=== PATIENT | female | born 1980 | race Caucasian/White ===

== ENCOUNTER 2025-02-16 06:26 | Day surgery (SDC) | payer OTHER, SELFPAY ==
[2025-02-16] VITALS (17 sets, daily range): BP systolic 83–157; BP diastolic 43–104; PULSE 59–90; RESP 14–20; TEMP 36.2–36.9; O2SAT 94–99; BMI 26.8
--- NOTE | 2025-02-16 06:54 | CRLHL7_ITS ---
For Patients: As a result of the Century Cures Act, medical imaging exams and procedure reports are released immediately into your electronic medical record. You may view this report before your referring provider. If you have questions, please contact your health care provider. INDICATION: Right lower quadrant pain. TECHNIQUE: CT abdomen and pelvis acquired with 81 cc Omnipaque 370 IV contrast. COMPARISON: None. FINDINGS: Lower chest: Unremarkable. Liver: Normal in size and attenuation. No suspicious masses. Gallbladder and bile ducts: No stones or inflammation. No biliary dilatation. Pancreas: No mass or inflammation. Spleen: Normal in size. No masses. Adrenal glands: No suspicious mass. Kidneys: Bilateral kidneys are normal in size with symmetric enhancement. No nephrolithiasis or hydronephrosis. GI tract: No findings of bowel obstruction. Inflamed and dilated appendix measuring up to 10 millimeter with appendicular lith of 6 millimeter at the base. No adjacent free fluid or free air to suspect perforation. Vasculature: Abdominal aorta is normal in caliber. Lymph nodes: No lymphadenopathy. Peritoneum/Abdominal Wall: No free air or significant free fluid. Hernia. Small fat containing umbilical Pelvis: Uterus is normal in size and attenuation. Bones: Unremarkable for age. IMPRESSION: Acute appendicitis with appendicolith of 6 mm at the base. Please note that all CT scans at this facility use dose modulation, iterative reconstruction, and/or weight-based dosing when appropriate to reduce radiation dose to as low as reasonably achievable. Dictated by Sury Martinez MD @ 02/16/2025 7:46:26 AM (Electronically Signed)
--- NOTE | 2025-02-16 07:01 | ED_ITS ---
HPI - General Adult General Chief complaint: Abdominal Pain Stated complaint: Lower R abdominal pain Time Seen by Provider: 02/16/25 06:45 History of Present Illness HPI narrative: 44-year-old female presents the emergency department with abdominal pain on the right side that has been present over the past 8 hours, worsening, now constant and sharp and located more in the right lower quadrant. She initially had wondered if her abdominal pain was secondary to eating garlic which she is very sensitive to but she researched her foods and realized that that was not the case. She tried taking Tums and Gas-X with no improvement in symptoms. She feels very bloated, abdomen seems distended. No vomiting, no nausea. Did not try any Tylenol or ibuprofen to help with symptoms. Pain is worsening over the last few hours. Waited until the morning to come into the ED. does have a hist ory of abdominal surgeries, 1 14 years ago, also had an abdominal plasty last year. Denies gynecological changes, no history of kidney stones, no dysuria. She takes season now for control, denies chance of . No injury or trauma. No other family members currently ill. Healthy normal bowel movement yesterday, NPO since supper yesterday. Past medical history notable for hypertension. Reports use of lisinopril and hydrochlorothiazide. Sensitivity to garlic but no anaphylactic allergies. Nonsmoker. Surgical history in the abdomen notable for and abdominal plasty as stated above. No anticoagulants. ROS is notable for the abdominal symptoms only, otherwise denies times 12 systems. Related Data Home Medications ?Medication ?Instructions ?Recorded ?Confirmed cyclobenzaprine 10 mg tablet 10 mg PO HS 02/16/25 02/16/25 dextroamphetamine-amphetamine 5 mg 1 tab PO QPM PRN 02/16/25 02/16/25 tablet dextroamphetamine-amphetamine ER 1 cap PO QAM 02/16/25 02/16/25 20 mg 24hr capsule,extend release hydrochlorothiazide 25 mg tablet 25 mg PO DAILY 02/16/25 02/16/25 levonorgestrel 0.15 mg-ethinyl 1 tab PO DAILY 02/16/25 02/16/25 estradiol 30 mcg tablets,3 mos pack(91) (Johnny) lisinopril 20 mg tablet 20 mg PO DAILY 02/16/25 02/16/25 Previous Rx's ?Medication ?Instructions ?Recorded hydrocodone 5 mg-acetaminophen 325 1 tab PO Q6H PRN pain #15 tabs 02/16/25 mg tablet sennosides 8.6 mg capsule (senna) 8.6 mg PO DAILY PRN constipation 02/16/25 #90 caps Allergies Allergy/AdvReac Type Severity Reaction Status Date / Time garlic AdvReac abdomen Verified 02/16/25 09:25 pain PFSH PFSH Social History Smoking Status: Never smoker How often do you have a drink containing alcohol: 2-4 times a month Alcohol type: other Alcohol type details: seltzers How many standard drinks containing alcohol do you have on a typical day: 5 or 6 How often do you have six or more drinks on one occasion: Less than monthly AUDIT-C Alcohol total score: 5 Non-prescribed substance use: denies use Caffeine: Yes (1 pop/day) service: No Exam Const: Vital Signs, click to edit/add: Vital Signs - 24 hr 02/16/25 06:38 02/16/25 09:00 02/16/25 09:40 Temperature 98.1 F 98.4 F Pulse Rate 90 Pulse Rate [Pulse Oximeter] 90 80 Respiratory Rate 16 16 16 Blood Pressure 135/104 H Blood Pressure [Ri ght Upper Arm] 157/96 H 126/90 H Pulse Oximetry 98 98 99 Oxygen Delivery Me thod Room Air Room Air Room Air 02/16/25 12:36 02/16/25 12:40 02/16/25 12:45 Temperature Pulse Rate 87 82 83 Pulse Rate [Pulse Oximeter] Respiratory Rate 16 19 15 Blood Pressure 104/62 96/57 L 93/56 L Blood Pressure [Ri ght Upper Arm] Pulse Oximetry 98 95 98 Oxygen Delivery Me thod Room Air 02/16/25 12:50 02/16/25 12:55 02/16/25 13:00 Temperature Pulse Rate 63 59 L 60 Pulse Rate [Pulse Oximeter] Respiratory Rate 15 20 20 Blood Pressure 85/49 L 83/43 L 95/60 Blood Pressure [Ri ght Upper Arm] Pulse Oximetry 96 97 97 Oxygen Delivery Me thod 02/16/25 13:05 02/16/25 13:10 02/16/25 13:15 Temperature 97.4 F L Pulse Rate 60 59 L 62 Pulse Rate [Pulse Oximeter] Respiratory Rate 16 16 15 Blood Pressure 98/61 98/62 104/64 Blood Pressure [Ri ght Upper Arm] Pulse Oximetry 95 94 99 Oxygen Delivery Me thod Room Air 02/16/25 13:20 02/16/25 13:30 02/16/25 13:45 Temperature 97.2 F L Pulse Rate 62 77 72 Pulse Rate [Pulse Oximeter] Respiratory Rate 15 16 16 Blood Pressure 97/71 107/69 111/47 L Blood Pressure [Ri ght Upper Arm] Pulse Oximetry 99 99 98 Oxygen Delivery Me thod Room Air Room Air Room Air 02/16/25 14:00 02/16/25 14:15 Temperature 97.8 F Pulse Rate 63 66 Pulse Rate [Pulse Oximeter] Respiratory Rate 16 14 Blood Pressure 111/76 113/93 H Blood Pressure [Ri ght Upper Arm] Pulse Oximetry 98 99 Oxygen Delivery Me thod Room Air Room Air Documenting provider has reviewed patient's vital signs: yes Common normals: no apparent distress and alert General appearance: cooperative and well kempt Other: Seems uncomfortable, very cooperative and friendly. Appears well nourished, well hydrated, nontoxic. HENMT: Common normals: normocephalic, moist oral mucous membranes and oropharynx normal Head and scalp: normocephalic Face and sinus: normal facial exam Mouth: oral and palatal mucosa normal Throat: posterior oropharynx normal Eye: Common normals: conjunctivae normal General eye: normal appearance of both eyes Conjunctiva: conjunctiva(e) normal Neck & C-Spine: General: normal visual inspection Resp: Common normals: normal respiratory effort and clear to auscultation bilaterally Effort & inspection: able to speak in complete sentences Auscultation: clear to auscultation bilaterally Cardio: Common normals: regular rate, regular rhythm, S1 normal heart sound, S2 normal heart sound and no murmurs Rate: regular rate Rhythm: regular rhythm Heart sounds: S1 normal and S2 normal GI: Other: Abdomen appears distended. Bowel sounds are hyperactive throughout. Guarding right lower quadrant with rebound tenderness present. No obvious mass. Liver and spleen are not enlarged. : Common normals: no CVA tenderness Bladder/kidney exam: no CVA tenderness Back & Pelvis: Common normals: no CVA tenderness Extremity: Common normals: normal to inspection, normal capillary refill and no pedal edema Neuro: Common normals: moves all extremities and no focal motor deficits Sensorium/orientation: alert Speech: speech normal Psych: Appearance: well kempt Attitude: engaged Insight: insight good Judgement: judgment good Skin: Common normals: no rashes or lesions noted General skin exam: no rashes or lesions noted Course Course ED Course: 44-year-old female with signs of peritonitis and right lower quadrant abdominal pain. Differential diagnosis including obstruction, ovarian torsion, ectopic , most likely appendicitis, very suspicious for rupture. Differential diagnosis also including things like gastroenteritis, volvulus, inflammatory bowel disease, kidney stone, amongst others. Urinalysis collected will run test. Emergency CT of the abdomen and pelvis suspicious for ruptured appendicitis. Toradol and Zofran for pain and nausea, typical intra-abdominal labs. Saline lock in place. Await findings. No initial signs of sepsis. Reevaluation(s) Time of Reevaluation #1: 08:01 Reevaluation #1: Spoke with Dr. Schmitt. CT showing acute appendicitis. Exam is suggestive of perforation but CT was not. I do recommend starting antibiotics, Zosyn. Surgery will evaluate patient and is planning for appendectomy later today. Confirm patient's last food was 7:00 p.m. last night. No anticoagulant use. No previous issues with general anesthesia. Not taking any beta blockers or cardiac medications. She is medically cleared for anesthesia with no additional perioperative studies are treatments recommended besides routine care. Vital Signs Vital signs: Initial Vital Signs Temperature 98.1 F 02/16/25 06:38 Temperature Source Temporal Artery Scan 02/16/25 06:38 Pulse Rate 90 02/16/25 06:38 Respiratory Rate 16 02/16/25 06:38 Blood Pressure 157/96 H 02/16/25 06:38 Blood Pressure Mean 116 H 02/16/25 06:38 Blood Pressure Position Sitting 02/16/25 06:38 Pulse Oximetry 98 02/16/25 06:38 Oxygen Delivery Method Room Air 02/16/25 06:38 Vital Signs Temperature 98.1 F 02/16/25 06:38 Pulse Rate 90 02/16/25 06:38 Respiratory Rate 16 02/16/25 06:38 Blood Pressure 157/96 H 02/16/25 06:38 Pulse Oximetry 98 02/16/25 06:38 Oxygen Delivery Method Room Air 02/16/25 06:38 Temperature 97.8 F 02/16/25 14:00 Pulse Rate 66 02/16/25 14:15 Respiratory Rate 14 02/16/25 14:15 Blood Pressure 113/93 H 02/16/25 14:15 Pulse Oximetry 99 02/16/25 14:15 Oxygen Delivery Method Room Air 02/16/25 14:15 Medications Administered Medications: Discontinued Medications Generic Name Dose Route Start Last Admin Trade Name Freq PRN Reason Stop Dose Admin Hydrocodone Bitart/Acetaminophen 1 - 2 tab 02/16/25 12:25 02/16/25 14:25 Hydrocodone-Acetamin 5-325 Mg 1 Tab PO 1 tab Q4H PRN Administration Pain Bupivacaine HCl 30 ml 02/16/25 12:19 02/16/25 12:19 Bupivacaine 0.25% 30 Ml INJECTION 02/16/25 12:20 20 ml ONCE ONE Administration Piperacillin Sod/Tazobactam 100 mls @ 200 mls/hr 02/16/25 07:51 02/16/25 08:40 Sod 3.375 gm/ Sodium Chloride IVPB 02/16/25 07:52 Infused ONCE ONE Infusion Lactated Ringer's 1,000 mls @ 500 mls/hr 02/16/25 07:51 02/16/25 08:47 Lactated Ringers 1000 Ml IV 02/16/25 09:50 500 mls/hr .Q2H SUSANA Administration Lactated Ringer's 1,000 mls @ 100 mls/hr 02/16/25 10:00 02/16/25 14:19 Lactated Ringers 1000 Ml IV Infused .Q10H SUSAAN Infusion Ketorolac Tromethamine 15 mg 02/16/25 06:54 02/16/25 07:23 Ketorolac 15 Mg/Ml Inj IVP 02/16/25 06:55 15 mg ONCE ONE Administration Ondansetron HCl 4 mg 02/16/25 06:54 02/16/25 07:23 Ondansetron 2 Mg/Ml Inj IVP 02/16/25 06:55 4 mg ONCE ONE Administration Medical Decision Making Lab Data Labs: Lab Results 02/16/25 02/16/25 Range/Units 06:40 07:07 WBC 12.90 H (4.50-11.00) K/uL RBC 4.33 (4.00-5.20) m/uL Hgb 13.6 (12.0-16.0) gm/dL Hct 40.3 (33.0-51.0) % MCV 93 (80-100) fL MCH 31 (26-34) pg MCHC 34 (32-36) gm/dL RDW Coeff of Mally 11.9 (11.5-15.5) % Plt Count 297 (140-440) K/uL Neut % (Auto) 78.2 H (42.0-72.0) % Lymph % (Auto) 12.6 L (20-44) % [place] % (Auto) 6.2 (0.0-11.0) % Eos % (Auto) 2.4 (0.0-7.0) % Baso % (Auto) 0.4 (0.0-3.0) % Neut # (Auto) 10.10 H (1.7-7.0) K/uL Lymph # (Auto) 1.60 (0.90-2.90) K/uL [place] # (Auto) 0.80 (0.00-0.90) K/UL Eos # (Auto) 0.30 (0.00-0.50) K/uL Baso # (Auto) 0.10 (0.00-0.30) K/uL Abs Immat Gran (auto) 0.00 (0.00-0.30) K/uL Imm/Tot Granulo (auto) 0.2 % Sodium 134 L (135-149) mmol/L Potassium 4.0 (3.6-5.1) mmol/L Chloride 102 (96-114) mmol/L Carbon Dioxide 23 (20-32) mmol/L Anion Gap 9 (7-15) mEq/L BUN 14 (5-24) mg/dL Creatinine 0.6 (0.5-1.5) mg/dL Estimated Creat Clear 112.01 Estimated GFR 113 ml/min Glucose 113 (60-115) mg/dL Lactate 1.0 (0.5-1.9) mmol/L Calcium 9.7 (8.4-10.6) mg/dL Total Bilirubin 0.7 (0.1-1.5) mg/dL AST 33 (12-35) U/L ALT 22 (4-35) U/L Alkaline Phosphatase 51 (40-150) U/L C-Reactive Protein 2.0 H (0.5-1.0) mg/dL Total Protein 7.1 (6.0-8.3) g/dL Albumin 4.2 (3.3-5.0) g/dL Lipase 222 (23-300) U/L Urine Color Yellow (Yellow) Urine Appearance Clear (Clear) Urine pH 6.5 (5.0-8.5) Ur Specific Martelle 1.015 (1.000-1.030) Urine Protein Negative (Negative) Urine Glucose (UA) Negative (Negative) Urine Ketones 1+ A (Negative) Urine Blood Trace-intact A (Negative) Urine Nitrite Negative (Negative) Urine Bilirubin Negative (Negative) Urine Urobilinogen 0.2 (0.2-1.0) Ur Leukocyte Esterase Negative (Negative) Urine RBC 0-2 (0-2) Urine WBC 0-2 (0-5) Ur Squamous Epith Cells Moderate A (None-Few) Urine Bacteria Few A (None) Urine Mucus Few A (None) Urine HCG, Qual Negative (Negative) Discharge Plan Discharge Clinical Impression: Acute appendicitis Patient Disposition: XFER to OR
[2025-02-16 07:04] LABS: Appearance Urine Clear (Clear); Bilirubin Urine Negative (Negative); Blood Urine Trace-intact (Negative); Color Urine Yellow (Yellow); Glucose Urine Negative (Negative); Ketones Urine 1+ (Negative); Leukocyte Esterase Urine Negative (Negative); Nitrite Urine Negative (Negative); Protein Urine Negative (Negative); Specific Gravity Urine 1.015 (1.000-1.030); Urobilinogen Urine 0.2 (0.2-1.0); pH Urine 6.5 (5.0-8.5)
[2025-02-16 07:06] LABS: Ur HCG Qualitative* Negative (Negative)
--- OUTSIDE RECORDS SUMMARY | 2025-02-16 07:14 | XMS_ITS | Encounter Summary ---
Author Organization [facility] Address [address] [place] [address] Care Team Providers Care Marine Pipefitter Name Role Phone Maxx Pabon MD Unavailable Israel Temple PA-C Primary Care Provider [phone] Israel Temple PA-C Unavailable [phone] Encounter Details Date Type Department Care Team (Late st Contact Info) Description 06/24/2024 [facility] [place] [facility] [place] [address] [address] Jean Marie He, DEBBIE Social History Tobacco Use Types Packs/Day Years Used Date Smoking Tobacco: Never Passive Smoke Exposure: Never Smokeless Tobacco: Never Alcohol Use Standard Drinks/Week Comments Yes 0 (1 standard drink = 0.6 oz pur e alcohol) ocassionally Social Connection and Isolation Panel [NHANES] A nswer Date Recorded Frequency of Communication with Friends and Fami ly Not on file 06/21/2024 How often do you get togethe r with friends or relatives? Three times a week 06/21/2024 Attends Denominational Services Not on file 06/21 Active Member of Clubs or Organizations Not on f ile 06/21/2024 Attends Club or Organization Meetings Not on cesar e 06/21/2024 Marital Status Not on file 06/21/2024 PHQ-2 Answer Date Recorded PHQ-2 Score 0 03/16/2024 [facility] Occupat ional [facility] - Occupational Stress Questionnaire Answer Date Recorded Do you feel stress - tense, restless, nervous, or anxious, or unable to sleep at night because your mind is troubled all the time - these days? Only a little 06/21/2024 Exercise Vital Sign Answer Date Recorde d On average, how many days pe r week do you engage in moderate to strenuous exercise (like a brisk walk)? 6 days 06/21/2024 On average, how many minutes do you engage in exercise at this level? 40 min 06/21/2024 Adolescent Education Answer Date Record ed Getting School Help Needed Not on file 08/01 Food Insecurity Answer Date Recorded Within the past 12 months, d id you worry that your food would run out before you got money to buy more? No 06/21/2024 Within the past 12 months, d id the food you bought just not last and you didn t have money to get more? No 06/21/2024 Housing Stability Answer Date Recorded Do you have housing? (Jessie g is defined as stable permanent housing and does not include staying ouside in a car, in a tent, in an abandoned building, in an overnight senior care, or couch-surfing.) Yes 06/21/2024 Are you worried about losing your housing? No 06/21/2024 Financial Resource Strain Answer Date R ecorded Within the past 12 months, h ave you or your family members you live with been unable to get utilities (heat, electricity) when it was really needed? No 06/21/2024 Transportation Needs Answer Date Record ed Within the past 12 months, h as lack of transportation kept you from medical appointments, getting your medicines, non-medical meetings or appointments, work, or from getting things that you need? No 06/21/2024 Interpersonal Safety Answer Date Record ed Do you feel physically and e motionally safe where you currently live? Yes 03/16/2024 Within the past 12 months, h ave you been hit, slapped, kicked or otherwise physically hurt by someone? No 03/16/2024 Within the past 12 months, h ave you been humiliated or emotionally abused in other ways by your partner or ex-partner? 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
--- OUTSIDE RECORDS SUMMARY | 2025-02-16 07:14 | XMS_ITS | Encounter Summary ---
Author Organization [facility] Address [address] [place] [address]. [place] [address] Care Team Providers Care Batch Plant Supervisor Name Role Phone Maxx Pabon MD Unavailable Israel Temple PA-C Primary Care Provider [phone] Israel Temple PA-C Unavailable [phone] Israel Temple PA-C Unavailable [phone] Israel Temple PA-C Unavailable [phone] Reason for Visit * Reason Onset Date Comments Medication Refill 12/23/2017 levonorgestrel -ethinyl estradiol (SEASONALE) 0.15- 0.03 MG per tablet Encounter Details Date Type Department Care Team (Late st Contact Info) Description 12/23/[address], [address] [place] [address] Israel Temple PA-C [address] [place] [address] Medication Refill (levonorgestrel-ethinyl estradiol (SEASONALE) 0.15-0.03 MG per tablet) Social History Tobacco Use Types Packs/Day Years Used Date Smoking Tobacco: Never Smokeless Tobacco: Never Alcohol Use Standard Drinks/Week Comments Yes 0 (1 standard drink = 0.6 oz pur e alcohol) ocassionally Comments No Sex and Gender Information Value Date Recorded Sex Assigned at Female 08/07/2021 5:42 PM CDT Legal Sex Female 4:19 AM CABLE SPLICER APPRENTICE Gender Identity Female 08/07/2021 5:42 PM CDT Sexual Orientation Straight 08/07/2021 5: 42 PM CDT 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 Meredith Cruz RN E SPLICER APPRENTICE * Telephone Encounter - Gillian Blankenship - 12/23/2017 8:36 AM CST Requested Prescriptions Pending Prescriptions Disp Refills ??? INTROVALE 0.15-0.03 MG per tablet [Pharmacy Med Name: L-NORGES/ET ES(INTROVALE)TB91 0.15/30] 91tablet 0 Last Written Prescription Date: 09/22/17 Last Fill Quantity: 84, # refills: 0 Last Office Visit: 09/22/2017 Future Office Visit: Sig: TAKE 1 TABLET DAILY Contraceptives Protocol Passed 12/23/2017 12:54 AM Passed - Patient is not a current smoker if age is 35 or older Passed - Recent or future visit with authorizing provider's specialty Patient had office visit in the last year or has a visit in the next 30 days with authorizing provider. See Patient Info tab in inbasket, or Choose Columns in Meds & Orders section of the refill encounter. Passed - No active on record Passed - No positive test in past 12 months E SPLICER APPRENTICE documented in this encounter Plan of Treatment Not on file documented as of this encounter Visit Diagnoses Diagnosis Encounter for surveillance of contraceptive pills Surveillance of previously prescribed contraceptive pill documented in this encounter Care Teams Batch Plant Supervisor Relationship Specialty Start Date End Date Israel Temple PA-C PCP - General Physician Medical Billing Coder - Medical 11/28/16 Israel Temple PA-C [id number] JULIO REESE, ISAIAS [id number] PCP - Assigned PCP 09/08/16 01/05/19 Maxx Pabon MD Family Practice 09/05/10 Israel Temple PA-C [id number] ISAIAS GARCIA [id number] Assigned PCP 03/04/21 Israel Temple PA-C [id number] ISAIAS GARCIA [id number] Assigned PCP 09/08/16 03/03/21 documented as of this encounter
--- OUTSIDE RECORDS SUMMARY | 2025-02-16 07:15 | XMS_ITS | Encounter Summary ---
Author Organization [facility] Address [address] [place] [address] Care Team Providers Care Title Search Manager Name Role Phone Maxx Pabon MD Unavailable Maxx Pabon MD Primary Car e Provider Israel Temple PA-C Primary Care Provider [phone] Israel Temple PA-C Unavailable [phone] Israel Temple-C Unavailable [phone] Israel Temple-Ramila Unavailable [phone] Reason for Visit * Reason Onset Date Comments Refill Request 04/28/2012 Control Encounter Details Date Type Department Care Team (Late st Contact Info) Description 04/28/2012 [facility] Medical Advice [address] [address] Maxx Pabon MD [facility] [address] [place] [address] Refill Request ( Control) Social History Tobacco Use Types Packs/Day Years Used Date Smoking Tobacco: Never Smokeless Tobacco: Never Alcohol Use Standard Drinks/Week Comments No 0 (1 standard drink = 0.6 oz pur e alcohol) Comments Unknown Sex and Gender Information Value Date Recorded Sex Assigned at Female 08/07/2021 5:42 PM CDT 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 Gender Identity Female 08/07/2021 5:42 PM CDT Sexual Orientation Straight 08/07/2021 5: 42 PM CDT 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 on file documented as of this encounter Miscellaneous Notes * Telephone Encounter - AnthonyMeredith - 04/29/2012 8:39 AM CDT CONTRACEPTIVES Last Office Visit R/T Diagnosis: 05/10/2011 ORAL/PATCH CONTRACEPTIVES--May also be prescribed for acne NUVARING OV: 12 mths Max refills: 12 mths Tests: annual exam MAY REFILL ONE MONTH EXTRA IF DUE FOR EXAM AND VISIT SCHEDULED MAY ALSO BE RX'd FOR ACNE PAP NIL 05/10/2011 documented in this encounter Plan of Treatment Not on file documented as of this encounter Visit Diagnoses Diagnosis care and examination immediately after delivery- Primary documented in this encounter Care Teams Title Search Manager Relationship Specialty Start Date End Date Maxx Pabon MD [facility] [address] [place] [address] PCP - General Family Practice 09/05/10 06/27/15 Israel Temple PA-C [facility] [address] [place] [address] PCP - General Physician Stablehand - Medical 11/28/16 Israel Temple PA-C [address] [place] [address] PCP - Assigned PCP 09/08/16 01/05/19 Maxx Pabon MD Family Practice 09/05/10 Israel Temple PA-C [address] ISAIAS GARCIA [id number] Assigned PCP 03/04/21 Israel Temple PA-C [address] ISAIAS GARCIA [id number] Assigned PCP 09/08/16 03/03/21 documented as of this encounter
--- OUTSIDE RECORDS SUMMARY | 2025-02-16 07:15 | XMS_ITS | Encounter Summary ---
Author Organization [place] Address [address] [place] [address] Care Team Providers Care Full Service Vending Driver Name Role Phone Maxx Pabon MD Unavailable Israel Temple PA-C Primary Care Provider [phone] Israel Temple PA-C Unavailable [phone] Reason for Visit * Reason Onset Date Comments Medication Change 02/13/2023 Encounter Details Date Type Department Care Team (Late st Contact Info) Description 02/13/2023 [facility] Medical Advice 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 KINA * Telephone Encounter - Emma Mitchell, DANNY - 02/14/2023 9:06 AM CDT Patient out of medication. Needs prescription for name brand. Jolessa t'd up. Due for visit in April. AP out of office. Routed to POD. Emma Mitchell RN documented in this encounter Plan of Treatment Not on file documented as of this encounter Visit Diagnoses Diagnosis Encounter for surveillance of contraceptive pills Surveillance of previously prescribed contraceptive pill documented in this encounter Care Teams Full Service Vending Driver Relationship Specialty Start Date End Date Israel Temple PA-C PCP - General Physician Toll Test Desk Worker - Medical 11/28/16 Maxx Pabon MD Family Practice 09/05/10 Israel Temple PA-C [id number] [address] [id number] Assigned PCP 03/04/21 documented as of this encounter
--- OUTSIDE RECORDS SUMMARY | 2025-02-16 07:15 | XMS_ITS | Encounter Summary ---
Author Organization [place] Address [address] [place] [address]. [place] [address] Care Team Providers Care Solar Photovoltaic Systems Engineer Name Role Phone Maxx Pabon MD Unavailable Israel Temple PA-C Primary Care Provider [phone] Israel Temple PA-C Unavailable [phone] Reason for Visit * Reason Comments Medication Refill Encounter Details Date Type Department Care Team (Late st Contact Info) Description 05/20/2021 Refill [facility] [id number] [place] [id number] Israel Temple PA-C [address] [place] [address] Medication Refill Social History Tobacco Use Types Packs/Day Years Used Date Smoking Tobacco: Never Smokeless Tobacco: Never Alcohol Use Standard Drinks/Week Comments Yes 0 (1 standard drink = 0.6 oz pur e alcohol) ocassionally PHQ-2 Answer Date Recorded PHQ-2 Score 0 02/22/2021 Comments No Sex and Gender Information Value Date Recorded Sex Assigned at Female 08/07/2021 5:42 PM CDT 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 documented in this encounter Plan of Treatment Not on file documented as of this encounter Visit Diagnoses Diagnosis Encounter for surveillance of contraceptive pills Surveillance of previously prescribed contraceptive pill documented in this encounter Care Teams Solar Photovoltaic Systems Engineer Relationship Specialty Start Date End Date Israel Temple PA-C PCP - General Physician Local Combination Truck Driver - Medical 11/28/16 Maxx Pabon MD Family Practice 09/05/10 Israel Temple PA-C [id number] [address] [id number] Assigned PCP 03/04/21 documented as of this encounter
--- OUTSIDE RECORDS SUMMARY | 2025-02-16 07:15 | XMS_ITS | Encounter Summary ---
Author Organization [place] Address [address] [place] [address] Care Team Providers Care Hull Drafter Name Role Phone Maxx Pabon MD Unavailable Israel Temple PA-C Primary Care Provider [phone] Israel Temple PA-C Unavailable [phone] Israel Temple PA-C Unavailable [phone] Encounter Details Date Type Department Care Team (Late st Contact Info) Description 11/08/2019 [facility] Medical Advice [address], [address] [place] [address] Marlene Burgos Social History Tobacco Use Types Packs/Day Years Used Date Smoking Tobacco: Never Smokeless Tobacco: Never Alcohol Use Standard Drinks/Week Comments Yes 0 (1 standard drink = 0.6 oz pur e alcohol) ocassionally PHQ-2 Answer Date Recorded PHQ-2 Score 1 02/17/2019 Comments No Sex and Gender Information Value Date Recorded Sex Assigned at Female 08/07/2021 5:42 PM CDT 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 Gender Identity Female 08/07/2021 5:42 PM CDT Sexual Orientation Straight 08/07/2021 5: 42 PM CDT 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
--- OUTSIDE RECORDS SUMMARY | 2025-02-16 07:15 | XMS_ITS | Clinical Summary ---
Author Organization [facility] Address [address] [place] [address] Care Team Providers Care Fixed Income Trading Vice President Name Role Phone Unassigned, Provider Primary Care Provider Unava ilable Source Comments You are receiving this document as you are listed as the primary care provider,follow-up provider, or the patient has been referred to you for consultation.This is in compliance with the Medicare and[facility] EHR Incentive Program,which states Providers who transition their patient to another setting of careor provider of care or refers their patient to another provider of care shouldprovide summary care record for each transition of care or referral. Actimize Allergies No known active allergies Medications minocycline (MINOCIN) 100 MG capsule Take 1 capsule by mouth 2 times daily. 60 3 7 Active tretinoin (AKA RETIN-A) 0.1 % cream Apply 1 Application topically nightly. LW Addl Instr:Indicated for: Acne 45 3 7 Active unknown medication Indications: PN: 7 Active levonorgest-eth estrad 91-Day (SEASONALE) 0.15-0.03 MG tablet Take 1 tablet by mouth daily (every 24 hours). LW Comment:added per pt LW Addl Instr:FOLLOW PACKAGE DIRECTIONS. 7 Active hydroCHLOROthia zide (ORETIC) 25 MG tablet Take 25 mg by mouth daily. Active levonorgest-eth estrad 91-Day (INTROVALE) 0.15-0.03 MG tablet Take 1 Tablet by mouth daily. Active butalbital-acet aminophen-caffe ine (FIORICET) 50-325-40 MG tablet Take 1 Tablet by mouth. 8 Active cyclobenzaprine (FLEXERIL) 10 MG tablet Take 5-10 mg by mouth. 8 Active Active Problems No known active problems Social History Tobacco Use Types Packs/Day Years Used Date Smoking Tobacco: Never Smokeless Tobacco: Never Comments Unknown Sex and Gender Information Value Date Recorded Sex Assigned at Not on file Legal Sex Female 11:31 PM CDT Gender Identity Not on file Sexual Orientation Not on file Last Filed Vital Signs Vital Sign Reading Time Taken Comments Blood Pressure 134/87 06/04/2019 2:33 PM CDT Pulse - - Temperature 36.7 C (98 F) 06/08/2019 5:03 PM CDT Respiratory Rate - - Oxygen Saturation - - Inhaled Oxygen Concentration - - Weight 83 kg (182 lb 14.4 oz) 06/04/2019 2:33 PM CDT Height 167.6 cm (5' 6) 06/04/2019 2:33 PM CDT Body Mass Index 29.52 06/04/2019 2:33 PM CDT Plan of Treatment Health Maintenance Due Date Last Done Comments Cervical Cancer Screening Due 1980 Hep C Screening (Preventive Services) 1980 Mammogram 1980 HIV Screening (Preventive Services) 1996 Adult Preventive Visit 1998 HepB Vaccine (1) 1999 DTaP/Tdap/Td Vaccine (3 - Tdap) 03/31/2021 03/31/2011, 09/15/2008 COVID-19 Vaccine (2 - season) 2024 02/20/2021 Influenza Vaccine (#1) 2024 Zoster/Shingles Vaccine (1 of 2) 2030 HepA Vaccine Aged Out 03/30/2009, 03/04, 09/15/2008, Additional history exists No longer eligible based on patient's age to complete this topic HPV Vaccine Aged Out No longer eligi ble based on patient's age to complete this topic Hib Vaccine Aged Out No longer eligi ble based on patient's age to complete this topic IPV (Polio) Vaccine Aged Out No longe r eligible based on patient's age to complete this topic MCV4 Vaccine Aged Out No longer eligi ble based on patient's age to complete this topic Meningococcal B Vaccine Aged Out No l onger eligible based on patient's age to complete this topic Pneumococcal Vaccine Aged Out No long er eligible based on patient's age to complete this topic Insurance [facility] Care Teams Fixed Income Trading Vice President Relationship Specialty Start Date End Date Unassigned, Provider [address] [place] [id number] PCP - General 01/10/06
--- OUTSIDE RECORDS SUMMARY | 2025-02-16 07:15 | XMS_ITS | Clinical Summary ---
Author Organization [facility] Address [address] [place] [address] Care Team Providers Care Language And Literature Division Chair Name Role Phone Maxx Pabon MD Unavailable Israel Temple PA-C Primary Care Provider [phone] Israel Temple PA-C Unavailable [phone] Allergies No known active allergies Medications amphetamine-dextr oamphetamine (ADDERALL XR) 20 MG 24 hr capsule Take 20 mg by mouth every morning. 06/15/20 24 Active cyclobenzaprine (FLEXERIL) 10 MG tabletIndications :Tension headache,Cervical marivel Take 0.5-1 tablets (5-10 mg) by mouth 3 times daily as needed for muscle spasms. 30 tablet 1 07/12/20 24 Active butalbital-acetam inophen-caffeine (ESGIC) 50-325-40 MG tabletIndications :Episodic tension-type headache, not intractable Take 1 tablet by mouth every 4 hours as needed for headaches. 30 tablet 07/12/20 24 Active hydrochlorothiazi de (HYDRODIURIL) 25 MG tabletIndications :Benign essential hypertension Take 1 tablet (25 mg) by mouth daily. 90 tablet 1 07/12/20 24 Active levonorgestrel-et hinyl estradiol (JOLESSA) 0.15-0.03 MG tabletIndications :Encounter for surveillance of contraceptive pills Take 1 tablet by mouth daily. 30 tablet 10/28/20 24 Active lisinopril (ZESTRIL) 20 MG tabletIndications :Benign essential hypertension Take 1 tablet (20 mg) by mouth daily. 90 tablet 11/30/19 25 Active levonorgestrel-et hinyl estradiol (JOLESSA) 0.15-0.03 MG tabletIndications :Encounter for surveillance of contraceptive pills TAKE 1 TABLET BY MOUTH EVERY DAY 91 tablet 1 01/26/20 25 Active JOLESSA 0.15-0.03 MG tabletIndications :Encounter for surveillance of contraceptive pills Take 1 tablet by mouth daily. 91 tablet 3 07/12/20 24 025 Discontinued Active Problems Problem Noted Date Diagnosed Date Essential hypertension 02/17/2019 Elevated blood pressure read ing without diagnosis of hypertension 09/02/2016 Cervicalgia 10/15/2011 Headache 10/15/2011 Overview (08/04/2015): Problem list name updated by automated process. Provider to review Hypertension in , p reeclampsia/eclampsia/prior HTN/deliv 04/05/2011 Gestational diabetes 02/05/2011 Resolved Problems Problem Noted Date Diagnosed Date Resolved Date Kjpcu-[id number] fetus 03/05/20112010 CARDIOVASCULAR SCREENING; LD L GOAL LESS THAN 160 02/05/2011 08/10/2021 Hyperlipidemia LDL goal <160 12/07/2010 02/05/2011 Supervision of normal first 09/05/2010 04/03/2011 Encounters Date Type Department Care Team Description 01/25/2025 Refill [facility] [address] [place] [address] Israel Temple PA-C Medication Refill 12/27/2024 Refill [facility] [address] [place] [phone] Israel Temple PA-C Medication Refill 11/29/2024 Refill [facility] [address] [place] [phone] Israel Temple PA-C Refill Request from Last 3 Months Immunizations Name Administration Dates Next Due COVID-19 MONOVALENT 12+ (Pfizer) 03/13/2021,02/02 DTaP, Unspecified 09/15/2008 HEPA 03/30/2009,09/15/2008 TD,PF 7+ (Tenivac) 09/15/2008,04/03/1999 TDAP (Adacel,Boostrix) 08/10/2021,03/31/2011, Family History Medical History Relation Comments Diabetes Maternal Grandfather Hypertension Maternal Grandfather Hypertension Maternal Grandmother Diabetes Mother Recently been di agnosed Hypertension Mother Relation Status Comments Brother Alive Father Alive Maternal Grandfather Maternal Grandmother Mother Alive Sister Alive Social History Tobacco Use Types Packs/Day Years Used Date Smoking Tobacco: Never Passive Smoke Exposure: Never Smokeless Tobacco: Never Tobacco Cessation:Counseling Given: Not Answered Alcohol Use Standard Drinks/Week Comments Yes 0 (1 standard drink = 0.6 oz pur e alcohol) ocassionally Social Connection and Isolation Panel [NHANES] A nswer Date Recorded Frequency of Communication with Friends and Fami ly Not on file 07/11/2024 How often do you get togethe r with friends or relatives? Three times a week 07/11/2024 Attends Mandaen Services Not on file 07/11 Active Member of Clubs or Organizations Not on f ile 07/11/2024 Attends Club or Organization Meetings Not on cesar e 07/11/2024 Marital Status Not on file 07/11/2024 PHQ-2 Answer Date Recorded PHQ-2 Score 0 03/16/2024 [facility] - Occupational Stress Questionnaire Answer Date Recorded Do you feel stress - tense, restless, nervous, or anxious, or unable to sleep at night because your mind is troubled all the time - these days? Only a little 07/11/2024 Exercise Vital Sign Answer Date Recorde d On average, how many days pe r week do you engage in moderate to strenuous exercise (like a brisk walk)? 6 days 07/11/2024 On average, how many minutes do you engage in exercise at this level? 40 min 07/11/2024 Adolescent Education Answer Date Record ed Getting School Help Needed Not on file 08/01 Food Insecurity Answer Date Recorded Within the past 12 months, d id you worry that your food would run out before you got money to buy more? No 07/11/2024 Within the past 12 months, d id the food you bought just not last and you didn t have money to get more? No 07/11/2024 Housing Stability Answer Date Recorded Do you have housing? (Jessie ramirez is defined as stable permanent housing and does not include staying ouside in a car, in a tent, in an abandoned building, in an overnight assisted, or couch-surfing.) Yes 07/11/2024 Are you worried about losing your housing? No 07/11/2024 Financial Resource Strain Answer Date R ecorded Within the past 12 months, h ave you or your family members you live with been unable to get utilities (heat, electricity) when it was really needed? No 07/11/2024 Transportation Needs Answer Date Record ed Within the past 12 months, h as lack of transportation kept you from medical appointments, getting your medicines, non-medical meetings or appointments, work, or from getting things that you need? No 07/11/2024 Interpersonal Safety Answer Date Record ed Do you feel physically and e motionally safe where you currently live? Yes 07/12/2024 Within the past 12 months, h ave you been hit, slapped, kicked or otherwise physically hurt by someone? No 07/12/2024 Within the past 12 months, h ave you been humiliated or emotionally abused in other ways by your partner or ex-partner? 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 on file Last Filed Vital Signs Vital Sign Reading Time Taken Comments Blood Pressure 126/74 10/14/2024 10:09 AM ENAMEL FINISHER Pulse 99 10/14/2024 10:09 AM ENAMEL FINISHER Temperature 36.8 C (98.3 F) 10/14/2024 10:09 AM ENAMEL FINISHER Respiratory Rate 14 10/14/2024 10:09 AM ENAMEL FINISHER Oxygen Saturation 97% 10/14/2024 10:09 AM ENAMEL FINISHER Inhaled Oxygen Concentration - - Weight 78 kg (172 lb) 10/14/2024 10:09 AM ENAMEL FINISHER Height 167.9 cm (5' 6.1) 07/12/2024 2:11 PM CDT Body Mass Index 27.68 07/12/2024 2:11 PM CDT Plan of Treatment Health Maintenance Due Date Last Done Comments HEPATITIS B IMMUNIZATION (1 of 3 - 19+ 3-dose series) 1999 COVID-19 Vaccine ( season) 2024 01/06/2022, 03/13/2021, 02/20/2021 INFLUENZA VACCINE (#1) 2024 PHQ-2 (once per calendar year) 2024 03/16/2024, 05/19/2023, 04/03/2022, Additional history exists LIPID 11/29/2024 11/29/2019, 09/04, 08/29/2015, Additional history exists BMP 03/30/2025 03/30/2024, 03/03, 05/19/2023, Additional history exists MAMMO SCREENING 06/09/2025 06/09/2023 ANNUAL REVIEW OF HM ORDERS 07/12/202507/12, 05/19/2023, 04/03/2022 YEARLY PREVENTIVE VISIT 07/12/2025 07/12/20 24, 05/19/2023, 04/03/2022, Additional history exists DIABETES SCREENING 03/30/2027 03/30/2024, 0 03/16/2024, 05/19/2023, Additional history exists HPV TEST 05/19/2028 05/19/2023, 09/28/2018 PAP 05/19/2028 05/19/2023, 09/04, 08/29/2015, Additional history exists ADVANCE CARE PLANNING 07/12/2029 07/12/2024, 021 ZOSTER IMMUNIZATION (1 of 2) 2030 DTAP/TDAP/TD IMMUNIZATION (7 - Td or Tdap) 08/10/2031 08/10/2021, 03/31/2011, 09/15/2008, Additional history exists HIV SCREENING Completed 09/05/2010 HEPATITIS C SCREENING Discontinued HPV IMMUNIZATION Aged Out No longer e ligible based on patient's age to complete this topic MENINGITIS IMMUNIZATION Aged Out No l onger eligible based on patient's age to complete this topic Pneumococcal Vaccine: Pediatrics (0 to 5 Years) and At-Risk Patients (6 to 49 Years) Aged Out No longer eligible based on patient's age to complete this topic Procedures Procedure Name Priority Date/Time Associated Diagnosis Comments BASIC METABOLIC PANEL Routine 03/30/2024 1:37 PM CDT Benign essential hypertension MA SCREENING DIGITAL BILATERAL Routine 06/09/2023 1:00 PM CDT Visit for screening mammogram GYNECOLOGIC CYTOLOGY Routine 05/19/2023 10:47 AM CDT Cervical cancer screening HPV HIGH RISK TYPES DNA CERVICAL Routine 05/19/2023 10:47 AM CDT Cervical cancer screening LIPID REFLEX TO DIRECT LDL PANEL Routine 11/29/2019 11:15 AM ENAMEL FINISHER Routine general medical examination at a [facility] care facility HIV 1 AND 2 ANTIBODY (QUEST) Routine 09/05/2010 10:49 AM CDT Supervision of normal first from Last 3 Months or Most Recently Relevant to Health Maintenance Results * (ABNORMAL) Basic metabolic panel (Ca, Cl, CO2, Creat, Gluc, K, Na, BUN) (03/30/2024 1:37 PM CDT) Sodium 135 135 - 145 mmol/L 03/31/2024 4:07 AM CDT [facility] Comment:Reference intervals for this test were updated on 07/29/2023 to more accurately reflect our healthy population. There may be differences in the flagging of prior results with similar values performed with this method. Interpretation of those prior results can be made in the context of the updated reference intervals. Potassium 3.9 3.4 - 5.3 mmol/L 03/31/2024 4:07 AM CDT [facility] Chloride 102 98 - 107 mmol/L 03/31/2024 4:07 AM CDT [facility] Carbon Dioxide (CO2) 24 22 - 29 mmol/L 03/31/2024 4:07 AM CDT [facility] Anion Gap 9 7 - 15 mmol/L 03/31/2024 4:07 AM CDT [facility] Urea Nitrogen 16.5 6.0 - 20.0 mg/dL 03/31/2024 4:07 AM CDT [facility] Creatinine 0.60 0.51 - 0.95 mg/dL 03/31/2024 4:07 AM CDT [facility] GFR Estimate >90 >60 mL/min/1. 73m2 03/31/2024 4:07 AM CDT [facility] Calcium 9.0 8.6 - 10.0 mg/dL 03/31/2024 4:07 AM CDT [facility] Glucose 101(H) 70 - 99 mg/dL 03/31/2024 4:07 AM CDT [facility] Blood STRUCTURE OF LEFT HAND / Unknown Venipuncture / Unknown 03/30/2024 1:37 PM CDT 03/30/2024 2:03 PM CDT us Maye Simmons PA-C LAB - BLOOD ORDER ROSA Final Result [facility] [address] [facility], [address] [place] [phone] * *MA Screening Digital Bilateral (06/09/2023 1:00 PM CDT) Anatomical Region Laterality Modality Breast Bilateral Mammography Impressions 06/10/2023 10:28 AM CDT IMPRESSION: ACR BI-RADS Category 2: Benign RECOMMENDED FOLLOW-UP: Annual routine screening mammogram The results and recommendations of this examination will be communicated to the patient. Eladia Joe MD Narrative 06/10/2023 10:28 AM CDT BILATERAL FULL FIELD DIGITAL SCREENING MAMMOGRAM Performed on: 06/09/23 No comparisons were made when reading this study. Technique: This study was evaluated with the assistance of Computer-Aided Detection. Findings: The breasts are heterogeneously dense, which may obscure small masses. There are changes of breast reduction of both breasts. There is no radiographic evidence of malignancy. us Israel Temple PA-C IMG MAMMOGRAPHY ORDERABLES Final Result * Pap Screen with HPV - recommended age 30 - 65 years (05/19/2023 10:47 AM CDT) Interpretation Negative for Intraepithelial Lesion or Malignancy (NILM) 05/22/2023 11:29 AM CDT [facility] Comment Papanicolaou Test Limitations: Cervical cytology is a screening test with limited sensitivity, and regular screening is critical for cancer prevention. Pap tests are primarily effective for the diagnosis/prevent ion of squamous cell carcinoma, not adenocarcinoma or other cancers. 05/22/2023 11:29 AM CDT [facility] Specimen Adequacy Satisfactory for evaluation, endocervical/mccormack sformation zone component present 05/22/2023 11:29 AM CDT [facility] Clinical Information none 05/22/2023 11:29 AM CDT [facility] Reflex Testing Yes regardless of result 05/22/2023 11:29 AM CDT [facility] Previous Abnormal? No 05/22/2023 11:29 AM CDT [facility] Performing Labs The technical component of this testing was completed at [facility] 05/22/2023 11:29 AM CDT [facility] Brushing CERVIX UTERI STRUCTURE / Unknown 05/19/2023 10:47 AM CDT 05/19/2023 11:02 AM CDT Israel GARRISON AP Final Resul t [facility] [address] [facility] [address], [address] [place] [address], [facility] [phone] * HPV High Risk Types DNA Cervical (05/19/2023 10:47 AM CDT) Other HR HPV Negative Negative 05/26/2023 6:57 AM CDT [facility] HPV16 DNA Negative Negative 05/26/2023 6:57 AM CDT [facility] HPV18 DNA Negative Negative 05/26/2023 6:57 AM CDT [facility] FINAL DIAGNOSIS This patient's sample is negative for HPV DNA. This test was developed and its performance characteristics determined by the [facility], [facility] Diagn[facility] Laboratory. It has not been cleared or approved by the FDA. The laboratory is regulated under CLIA as qualified to perform high-complexity testing. This test is used for clinical purposes. It should not be regarded as investigational or for research. METHODOLOGY: The Tutu Reuben 4800 system uses automated extraction, simultaneous amplification of HPV (L1 region) and beta-globin, followed by real time detection of fluorescent labeled HPV and beta globin using specific oligonucleotide probes. The test specifically identifies types HPV 16 DNA and HPV 18 DNA while concurrently detecting the rest of the high risk types (31, 33, 35, 39, 45, 51, 52, 56, 58, 59, 66 or 68). COMMENTS: This test is not intended for use as a screening device for woman under age 30 with normal cervical cytology. Results should be correlated with cytologic and histologic findings. Close clinical followup is recommended. 05/26/2023 6:57 AM CDT [facility] Brushing CERVIX UTERI STRUCTURE / Unknown Non-blood Collection / Unknown 05/19/2023 10:47 AM CDT 05/23/2023 8:09 AM CDT Israel Temple PA-C LAB - BLOOD ORDERABLES Ashia sharp Result [facility] [address] [facility], [address] [address], [facility] [phone] * (ABNORMAL) Lipid panel reflex to direct LDL Fasting (11/29/2019 11:15 AM ENAMEL FINISHER) Cholesterol 133 <200 mg/dL 11/30/2019 10:07 AM ENAMEL FINISHER [facility] Triglycerides 160(H) <150 mg/dL 11/30/2019 10:07 AM ENAMEL FINISHER [facility] Comment: Borderline high: 150-199 mg/dl High: 200-499 mg/dl Very high: >499 mg/dl Fasting specimen HDL Cholesterol 45(L) >49 mg/dL 0 10:07 AM ENAMEL FINISHER [facility] LDL Cholesterol Calculated 56 <100 mg/dL 11/30/2019 10:07 AM ENAMEL FINISHER [facility] Comment:Desirable: <100 mg/d l Non HDL Cholesterol 88 <130 mg/dL 11/30/2019 10:07 AM ENAMEL FINISHER [facility] Blood specimen (specimen) 11/29/2019 11:15 AM ENAMEL FINISHER 11/29/2019 11:20 AM ENAMEL FINISHER us Israel Temple PA-C LAB - BLOOD ORDERABLES Ashia l Result [facility] [address] [place] [address] * HIV 1 and 2 Antibody (09/05/2010 10:49 AM CDT) HIV 1&[address] [facility] Blood specimen (specimen) 09/05/2010 10:49 AM CDT 09/05/2010 10:51 AM CDT us Maxx Pabon MD LAB - BLOOD ORDERABLES Final Result [facility] [address] [place] [address] from Last 3 Months or Most Recently Relevant to Health Maintenance Insurance [employer] NON [employer] NON [employer] Care Teams Language And Literature Division Chair Relationship Specialty Start Date End Date Israel Temple PA-C PCP - General Physician Miniature Set Constructor - Medical 11/28/16 Maxx Pabon MD Family Practice 09/05/10 Israel Temple PA-C [id number] [address] [id number] Assigned PCP 03/04/21
--- OUTSIDE RECORDS SUMMARY | 2025-02-16 07:15 | XMS_ITS | Encounter Summary ---
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 Gender Identity Female 08/07/2021 5:42 PM CDT Sexual Orientation Straight 08/07/2021 5: 42 PM CDT 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
--- OUTSIDE RECORDS SUMMARY | 2025-02-16 07:15 | XMS_ITS | Encounter Summary ---
Author Organization [facility] Address [address] [place] [address] Care Team Providers Care Travel Agency Manager Name Role Phone Maxx Pabon MD Unavailable Israel Temple PA-C Primary Care Provider [phone] Israel Temple PA-C Unavailable [phone] Encounter Details Date Type Department Care Team (Late st Contact Info) Description 01/31/2022 [facility] Medical Advice [address] [address] [place] Social History Tobacco Use Types Packs/Day Years Used Date Smoking Tobacco: Never Smokeless Tobacco: Never Alcohol Use Standard Drinks/Week Comments Yes 0 (1 standard drink = 0.6 oz pur e alcohol) ocassionally PHQ-2 Answer Date Recorded PHQ-2 Score 0 05/28/2021 Comments No Sex and Gender Information Value Date Recorded Sex Assigned at Female 08/07/2021 5:42 PM CDT Legal Sex Female 4:19 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 APPAREL Gender Identity Female 08/07/2021 5:42 PM CDT Sexual Orientation Straight 08/07/2021 5: 42 PM CDT 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
--- OUTSIDE RECORDS SUMMARY | 2025-02-16 07:15 | XMS_ITS | Encounter Summary ---
Author Organization [facility] Address [address] [place] [address]. [place] [address] Care Team Providers Care Product Control And Logistics Analyst Name Role Phone Maxx Pabon MD Unavailable Israel Temple PA-C Primary Care Provider [phone] Israel Temple PA-C Unavailable [phone] Reason for Visit * Reason Comments Medication Refill Encounter Details Date Type Department Care Team (Late st Contact Info) Description 01/25/2025 Refill [facility] [id number] [place] [phone] Israel Temple PA-C [address] [place] [address] Medication Refill Social History Tobacco [...] relatives? Three times a week 07/11/2024 Attends Mandaeism Services Not on file 07/11 Active Member of Clubs or Organizations Not on f ile 07/11/2024 Attends Club or Organization Meetings Not on cesar e 07/11/2024 Marital Status Not on file 07/11/2024 PHQ-2 Answer Date Recorded PHQ-2 Score 0 03/16/2024 [facility] - Occupational Stress [...] Answer Date Recorded Do you have housing? 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
--- OUTSIDE RECORDS SUMMARY | 2025-02-16 07:15 | XMS_ITS | Encounter Summary ---
Author Organization [facility] Address [address] [place] [id number] Care Team Providers Care Asset Protection Manager Name Role Phone Maxx Pabon MD Unavailable Israel Temple PA-C Primary Care Provider [phone] Israel Temple PA-C Unavailable [phone] Israel Temple PA-C Unavailable [phone] Encounter Details Date Type Department Care Team (Late st Contact Info) Description 12/01/[address], [address] [place] [address] Israel Temple PA-C [id number] [place] [address] Social History Tobacco Use Types Packs/Day Years Used Date Smoking Tobacco: Never Smokeless Tobacco: Never Alcohol Use Standard Drinks/Week Comments Yes 0 (1 standard drink = 0.6 oz pur e alcohol) ocassionally PHQ-2 Answer Date Recorded PHQ-2 Score 0 11/29/2019 Comments No Sex and Gender Information Value Date Recorded Sex Assigned at Female 08/07/2021 5:42 PM CDT 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 Marlene Burgos/ Entry Level Drafter [employer] * Telephone Encounter - Aislinn Cifuentes - 12/01/2019 9:13 AM CST Reason for call: Form Our goal is to have forms completed within 72 hours, however some forms may require a visit or additional information. Who is the form from? [employer] (if other please explain) Where did the form come from? Patient or family brought in What clinic location was the form placed at? [facility] Where was the form placed? Pool What number is listed as a contact on the form? Phone call message - patient request for a letter, form or note: Date needed: as soon as possible Please fax to Has the patient signed a consent form for release of information? YES Additional comments: Type of letter, form or note: Biometric Screening Form Phone number to reach patient: Cell number on file: Telephone Information: Best Time: Any Can we leave a detailed message on this number? YES [employer] documented in this encounter Plan of Treatment Not on file documented as of this encounter Visit Diagnoses Not on filedocumented in this encounter Care Teams Asset Protection Manager Relationship Specialty Start Date End Date Israel Temple PA-C PCP - General Physician Police Dispatcher - Medical 11/28/16 Maxx Pabon MD Family Practice 09/05/10 Israel Temple PA-C [id number] [address] [id number] Assigned PCP 03/04/21 Israel Temple PA-C [id number] [address] [id number] Assigned PCP 09/08/16 03/03/21 documented as of this encounter
[2025-02-16 07:19] LABS: Bacteria Urine Few; Mucus Urine Few; RBC Urine 0-2 (0-2); Squamous Epithelial Cell Urine Moderate (None-Few); WBC Urine 0-2 (0-5)
[2025-02-16 07:22] LABS: Basophils Percent Auto 0.4 % (0.0-3.0); Eosinophils Percent Auto 2.4 % (0.0-7.0); Hematocrit 40.3 % (33.0-51.0); Hemoglobin* 13.6 gm/dL (12.0-16.0); Immature Granulocytes Pct Auto 0.2 %; Lymphocytes Percent Auto 12.6 % (20-44); Mean Corpuscular HGB Conc 34 gm/dL (32-36); Mean Corpuscular Hemoglobin 31 pg (26-34); Mean Corpuscular Volume 93 fL (80-100); Monocytes Percent Auto 6.2 % (0.0-11.0); Neutrophils Percent Auto 78.2 % (42.0-72.0); Platelet Count* 297 K/uL (140-440); RDW Coefficient of Variation % 11.9 % (11.5-15.5); Red Blood Count 4.33 m/uL (4.00-5.20)
[2025-02-16] MEDS: ONDANSETRON 2 MG/ML inj 4 MG IVP (07:23)
[2025-02-16] MEDS: KETOROLAC 15 MG/ML inj IVP (07:23)
[2025-02-16 07:36] LABS: Albumin* 4.2 g/dL (3.3-5.0); Chloride* 102 mmol/L (96-114); Slide Review Reflex No; Sodium* 134 mmol/L (135-149)
[2025-02-16 07:38] LABS: Blood Urea Nitrogen* 14 mg/dL (5-24); Creatinine* 0.6 mg/dL (0.5-1.5); Est. Creatinine Clearance* 112.01; Estimated Glomerular Filt Rate 113 ml/min
[2025-02-16 07:39] LABS: Alanine Aminotransferase* 22 U/L (4-35); Alkaline Phosphatase* 51 U/L (40-150); Anion Gap 9 mEq/L (7-15); Aspartate Amino Transferase* 33 U/L (12-35); Bilirubin Total* 0.7 mg/dL (0.1-1.5); Carbon Dioxide* 23 mmol/L (20-32); Lipase* 222 U/L (23-300); Total Protein* 7.1 g/dL (6.0-8.3)
[2025-02-16 07:40] LABS: Calcium* 9.7 mg/dL (8.4-10.6); Glucose* 113 mg/dL (60-115)
[2025-02-16] MEDS: PIPERACILLIN/TAZOBACTAM 3.375 GM in 0.9 % SODIUM CHLORIDE Mini-bag 100 ML IVPB (08:06)
[2025-02-16] MEDS: LACTATED RINGERS 1000 ML 1,000 ML 500 ML IV (08:47)
--- NOTE | 2025-02-16 09:54 | PM.GSHP ---
History of Present Illness History of Present Illness Date Seen: 02/16/25 Chief complaint: Lower R abdominal pain Narrative: Tali Ware is a 44 year old female who presented to the ED with 12 hours of abdominal pain. The pain started yesterday. Initially it was a sharp discomfort in the LUQ.It felt similar to the gas pain that she gets when eating garlic, but this pain persisted and moved to the RLQ. She had a bowel movement, which did not help the pain. Denies any fever. No nausea or vomiting. Her abdominal surgical history is positive for C sect and abdominoplasty. Review of Systems Status of ROS: Reports: 10 or more systems reviewed and unremarkable except as noted in History and below PFSH PFS Social History Smoking Status: Never smoker How often do you have a drink containing alcohol: 2-4 times a month Alcohol type: other Alcohol type details: seltzers How many standard drinks containing alcohol do you have on a typical day: 5 or 6 How often do you have six or more drinks on one occasion: Less than monthly AUDIT-C Alcohol total score: 5 Non-prescribed substance use: denies use Caffeine: Yes (1 pop/day) service: No Meds Home Medications and Allergies Home Medications ?Medication ?Instructions ?Recorded ?Confirmed ?Type cyclobenzaprine 10 mg tablet 10 mg PO HS 02/16/25 02/16/25 History dextroamphetamine-amphetamine 5 mg 1 tab PO QPM PRN 02/16/25 02/16/25 History tablet dextroamphetamine-amphetamine ER 1 cap PO QAM 02/16/25 02/16/25 History 20 mg 24hr capsule,extend release hydrochlorothiazide 25 mg tablet 25 mg PO DAILY 02/16/25 02/16/25 History levonorgestrel 0.15 mg-ethinyl 1 tab PO DAILY 02/16/25 02/16/25 History estradiol 30 mcg tablets,3 mos pack(91) (Katelynelias) lisinopril 20 mg tablet 20 mg PO DAILY 02/16/25 02/16/25 History Allergies Allergy/AdvReac Type Severity Reaction Status Date / Time garlic AdvReac abdomen Verified 02/16/25 09:25 pain Exam Narrative: Exam Narrative: Gen: alert and oriented, NAD Resp: equal breath rise, maintained on RA CV: well perfused Abdomen: soft, tender to palpation RLQ with guarding. Mild distension. Const: Vital Signs, click to edit/add: Vital Signs - 24 hr 02/16/25 06:38 02/16/25 09:00 02/16/25 09:40 Temperature 98.1 F 98.4 F Pulse Rate 90 Pulse Rate [Pulse Oximeter] 90 80 Respiratory Rate 16 16 16 Blood Pressure 135/104 H Blood Pressure [Ri ght Upper Arm] 157/96 H 126/90 H Pulse Oximetry 98 98 99 Oxygen Delivery Me thod Room Air Room Air Room Air Results Results Labs: Leukocytosis (12) Abdomen CT scan report/results: report reviewed and image reviewed Progress Note:A&P Assessment and plan (1) Acute appendicitis: Status: Acute Plan The patient presented with a history, exam and imaging findings consistent with acute appendicitis. I discussed the treatment options with the patient including non-surgical and surgical options. I recommended laparoscopic appendectomy. The risks of surgery were reviewed with the patient including the risks of bleeding, post-operative wound or intra-abdominal infection, injury to abdominal structures and possible conversion to an open operation. We also discussed anesthetic complications including [place], stroke, respiratory failure and blood clots. The patient voiced an understanding of our conversation, had the opportunity to ask questions, agreed to accept the risks of surgery and asked that we proceed with surgery.
--- NOTE | 2025-02-16 11:12 | P.ANES_ITS ---
Anesthesia Charges Start Date/Time Anesthesia Start Date: 02/16/25 Anesthesia Start Time: 11:29 Stop Date/Time Anesthesia Stop Date: 02/16/25 Anesthesia Stop Time: 12:40 Summary Emergency: IFEOMA Coding CPT Codes CPT Codes: ANESTH SURG LOWER ABDOMEN - 04038 ([id number]) P2 - PATIENT W/MILD SYST DISEASE, QK - SEED COLLECTOR 2-4 CNCRNT ANES PROC, QX - ORIENTAL RUG REPAIRER SVC W/ MD MED DIRECTION Additional Codes: Summary - Emergency: IFEOMA ([id number])
--- NOTE | 2025-02-16 11:12 | W.ANESCHARGE ---
Anesthesia Charges Start Date/Time Anesthesia Start Date: 02/16/25 Anesthesia Start Time: 11:29 Stop Date/Time Anesthesia Stop Date: 02/16/25 Anesthesia Stop Time: 12:40 Summary Emergency: IFEOMA Coding CPT Codes CPT Codes: ANESTH SURG LOWER ABDOMEN - 66176 ([id number]) P2 - PATIENT W/MILD SYST DISEASE, QK - CARD PLAYER 2-4 CNCRNT ANES PROC, QX - MACHINE INKER SVC W/ MD MED DIRECTION Additional Codes: Summary - Emergency: IFEOMA ([id number])
[2025-02-16] MEDS: LACTATED RINGERS 1000 ML 1,000 ML 100 ML IV ×2 (11:45→13:12)
[2025-02-16] MEDS: BUPIVACAINE 0.25% 30 ML INJECTION (12:19)
--- NOTE | 2025-02-16 12:36 | P.ANES_ITS ---
Anesthesia Charges Start Date/Time Anesthesia Start Date: 02/16/25 Anesthesia Start Time: 11:29 Stop Date/Time Anesthesia Stop Date: 02/16/25 Anesthesia Stop Time: 12:40 Summary Emergency: SALES LEDGER ADMINISTRATOR Coding CPT Codes CPT Codes: ANESTH SURG LOWER ABDOMEN - 47173 ([id number]) P2 - PATIENT W/MILD SYST DISEASE, QX - SALES LEDGER ADMINISTRATOR SVC W/ MD MED DIRECTION, QK - HOME THEATRE TECHNICIAN 2-4 CNCRNT ANES PROC Additional Codes: Summary - Emergency: SALES LEDGER ADMINISTRATOR ([id number])
--- NOTE | 2025-02-16 12:36 | W.ANESCHARGE ---
Anesthesia Charges Start Date/Time Anesthesia Start Date: 02/16/25 Anesthesia Start Time: 11:29 Stop Date/Time Anesthesia Stop Date: 02/16/25 Anesthesia Stop Time: 12:40 Summary Emergency: BRUSHING MACHINE OPERATOR Coding CPT Codes CPT Codes: ANESTH SURG LOWER ABDOMEN - 28948 ([id number]) P2 - PATIENT W/MILD SYST DISEASE, QX - BRUSHING MACHINE OPERATOR SVC W/ MD MED DIRECTION, QK - DIGITAL ANALYTICS MANAGER 2-4 CNCRNT ANES PROC Additional Codes: Summary - Emergency: BRUSHING MACHINE OPERATOR ([id number])
[2025-02-16] MEDS: HYDROCODONE-ACETAMIN 5-325 MG 1 TAB PO (14:25)
--- NOTE | 2025-02-23 12:48 | PM.GSPRC ---
Operative Note Date of procedure: 02/16/25 Pre-op diagnosis: Acute appendicitis Post-op diagnosis: Same, non perforated Type of Procedure: Laparoscopic appendectomy Indications: Patient is a 44-year-old female who presented with clinical workup and symptoms consistent with acute appendicitis. Risks and benefits of operative intervention were discussed at length with the patient. Risks included but was not limited to: Bleeding, infection, risk of damage to surrounding structures, possible need for additional procedures, possible need to convert to an open operation and postoperative complications such as pneumonia, pulmonary emboli or DE. All questions and concerns were addressed with the patient agreeing to proceed. Procedure Description: After discussing the risks and benefits of the procedure, the patient signed informed consent.? The operative site was marked and the patient was brought to the operating room and placed on the operating table in supine position.? Care was taken to pad the patient's pressure points.?? The patient was then intubated by anesthesia.?? The operative site was then prepped and draped in the usual sterile fashion.? A time-out was then performed. Entrance to the abdomen was obtained via a 5 mm optical trocar in the left upper quadrant. The abdomen was insufflated and briefly surveyed for any signs of injury. There were none. A 12 mm port was placed at the umbilicus as well as a 5 mm port in the left lower quadrant under direct vision. The patient was then placed in Trendelenburg position with the right side up. The small bowel was gently moved out of the way and the appendix was in view. A small amount of dissection was necessary to free the appendix from the surrounding pelvic attachments. This was grasped and pulled into view. A mesenteric window was created between the base of the appendix and the mesoappendix. A 45 mm Endo-SALOME purple load stapler was then used to transect the appendix at its base. A 45 mm vascular load stapler was then used to take the mesoappendix. The staple lines were inspected for bleeding. There was none. The appendix was then removed from the abdomen using an Endo-Catch bag. The specimen was sent to pathology. The 12 mm port site fascia was closed with 0 Vicryl. The skin was then closed with absorbable subcuticular suture. Sterile dressings were then applied. Instrument sponge and needle counts were correct at the end of the case. The patient was then woken and transported to the PACU in stable condition. Findings: Findings consistent with acute appendicitis Anesthesia: GETA Surgeon: Dipika Schmitt MD Estimated blood loss (mL): 10 Specimen: Appendix Condition: stable Disposition: PACU
== END 2025-02-16 14:25 | disposition home or self-care (01) ==
LOC: ED 08:41 → SS 08:56
PROVIDERS: Emergency Provider Family Medicine; Visit Provider Surgery
PROC: 0DTJ4ZZ Resection of Appendix, Percutaneous Endoscopic Approach (ICD-10-PCS; CPT 44970; principal; 2025-02-16 11:30)
DX: K35.80 Unspecified acute appendicitis (principal)
CPT/HCPCS: 44970; 00840; 36415; 74177; 80053; 81001; 81003; 81025; 83605; 83690; 85025; 86140; 87086; 88304; 99140; 99284; 99285; A9270; J0330; J0665; J1100; J1171; J1885; J2250; J2371; J2405; J2543; J2704; J2710; J3010; J7120; Q9967